=== PATIENT | male | born 1965 | race Caucasian/White ===

== ENCOUNTER 2017-03-12 13:25 | Emergency (ER) | payer OTHER, BC ==
[2017-03-12] MEDS ORDERED: Lidocaine 1% with EPINEPHrine 1:100,000 20 ML MDV INJECT ONE (13:48)
[2017-03-12] MEDS ORDERED: Diphtheria,Pertussis(Acell),Tetanus Vaccine 0.5 ML SDV IM ONE (13:48)
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
--- NOTE | 2017-03-12 15:24 | CR ---
Right forearm: Two views of the right forearm were obtained. Comparison: No previous study. Several small radiopacities are projected within the ulnar side of the posterior distal forearm. Small calcification is seen which appears old noted off the posterior wrist which is felt to be incidental. No acute fracture or other bony abnormality is identified. Impression: 1. Small calcification which is felt to be incidental. 2. Small radiopacities within the distal forearm along the ulnar and posterior soft tissues. 3. No acute bony abnormality is seen. Diagnostic code #3
== END 2017-03-12 16:05 | disposition home or self-care (01) ==
LOC: JD.ED 13:25
DX: S51.811A Laceration without foreign body of right forearm, initial encounter (principal); Z79.899 Other long term (current) drug therapy; Z23 Encounter for immunization; V48.0XXA Car driver injured in noncollision transport accident in nontraffic accident, initial encounter; Y92.828 Other wilderness area as the place of occurrence of the external cause
CPT/HCPCS: 12002; 73090-26-RT; 73090-RT; 90471; 90715; 99283-25; 99284-25